=== PATIENT | female | born 1985 ===

== ENCOUNTER 2018-11-01 09:23 | Outpatient (CLI) | payer OTHER ==
[~2018-11-01] VITALS: Ht 154.9 cm; Wt 65.8 kg
== END 2018-11-01 09:40 | disposition home or self-care (01) ==
LOC: OFIC 805 09:23
DX: H92.01 Otalgia, right ear (principal); K21.0 Gastro-esophageal reflux disease with esophagitis; R22.1 Localized swelling, mass and lump, neck

== ENCOUNTER 2018-11-24 10:59 | Outpatient (CLI) | payer OTHER | END 2018-11-24 11:15 | disposition home or self-care (01) | LOC: OFIC 805 10:59 | DX: H92.01 Otalgia, right ear (principal); E04.1 Nontoxic single thyroid nodule ==

== ENCOUNTER → 2020-02-28 | Outpatient (CLI) | payer OTHER | END | disposition home or self-care (01) | LOC: OFIC 805 09:39 | PROVIDERS: ATTEND Otolaryngology | DX: H92.01 Otalgia, right ear (principal); K21.0 Gastro-esophageal reflux disease with esophagitis; R09.81 Nasal congestion; J30.89 Other allergic rhinitis ==